=== PATIENT | male | born 1995 | race Caucasian/White ===

== ENCOUNTER 2022-05-26 11:04 | Emergency (ER) | payer OTHER ==
[~2022-05-26] VITALS: Ht 152.4 cm; Wt 68.0 kg
[2022-05-26 11:04] VITALS: BP 129/86
--- NOTE | 2022-05-26 11:59 | ER.PDOC ---
General Chief Complaint: Male Stated Complaint: WOUND CARE Time seen by MD: 11:44 Source: patient Exam Limitations: no limitations History of Present Illness Initial Comments Chronic indwelling catheter, came here for change of Stone Timing/Duration: constant Severity/Quality: mild Location: unknown Sexual History: Non-contributory Prior symptoms/Treatment: Similar symptoms previous Past Medical History Medical History: vascular disease Surgical History: back Social History Alcohol Use: none Drug Use: Meth Reviewed Nursing Reviewed: Vital Signs, Abn. 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, No Motor/Sensory Deficits, Alert, Normal Mood/Affect, Oriented x 3 Skin: Normal Color, Warm/Dry Results/Orders Results/Orders Vital Signs Date Time Temp Pulse Resp B/P (MAP) Pulse Ox O2 Delivery O2 Flow Rate FiO2 05/26/22 11:04 98.0 64 18 05/26/22 11:04 98.0 64 18 129/86 (100) 99 Room Air* 0 21 05/26/22 11:04 98.0 64 18 99 Consult/PCP Time Consult/PCP Called: 12:05 Consult/PCP: DR HEAVENLY MONTEIRO DEPART Departure Time of Disposition: 12:11 Disposition: 01 HOME / SELF CARE / HOMELESS Impression: Primary Impression: Stone catheter problem Condition: Improved Referrals: PCP,UNKNOWN (PCP) PRIMARY CARE PROVIDER Duration or Time Spent with Pa: MELVINA ORTIZ MD May 26, 2022 11:59
== END 2022-05-26 12:31 | disposition home or self-care (01) ==
LOC: ER 11:04
DX: T83.098A Other mechanical complication of other urinary catheter, initial encounter (principal); Y84.6 Urinary catheterization as the cause of abnormal reaction of the patient, or of later complication, without mention of misadventure at the time of the procedure
CPT/HCPCS: 51702; 99284